=== PATIENT | female | born 1970 | race Caucasian/White ===

== ENCOUNTER 2021-06-29 18:28 | Emergency (ER) | payer OTHER ==
[~2021-06-29] VITALS: Ht 170.2 cm; Wt 104.3 kg
[2021-06-29 18:30] VITALS: BP 165/110
--- NOTE | 2021-06-29 18:40 | NUR ---
51 Y/O F AMBULATED TO BED 3 WITH STEADY GAIT, C/O ABD, DYSURIA WITH ODOR AND INCREASED URGE TO URINATE, AND LOW BACK PAIN. PT TAKING OTC AZO PMH: PRE-DM, HYPOTHYROID, HTN NKDA
[2021-06-29] MEDS ORDERED: SULF-59 PO (19:01)
[2021-06-29] MEDS ORDERED: PYR100 PO (19:01)
[2021-06-29] MEDS ORDERED: ACET-10509 PO (19:01)
[2021-06-29] MEDS ORDERED: HYDROcodone/APAP 5/325 MG 1 TAB TAB PO ONE (19:05)
[2021-06-29 19:20] VITALS: BP 165/110
--- NOTE | 2021-06-29 19:20 | NUR ---
Patient discharged with v/s stable. Written and verbal after care instructions given and explained. Patient alert, oriented and verbalized understanding of instructions. Ambulatory with steady gait. All questions addressed prior to discharge. ID band removed. Patient advised to follow up with PMD. Rx of TYLENOL EXTRA STRENGTH, PYRIDIUM, BACTRIM given. Patient educated on indication of medication including possible reaction and side effects. Opportunity to ask questions provided and answered.
== END 2021-06-29 19:20 | disposition home or self-care (01) ==
LOC: MED 18:28
DX: N39.0 Urinary tract infection, site not specified (principal); I10 Essential (primary) hypertension; E07.9 Disorder of thyroid, unspecified; Z79.899 Other long term (current) drug therapy
CPT/HCPCS: 81002; 81025; 99283

== ENCOUNTER 2021-10-06 19:01 | Emergency (ER) | payer OTHER ==
[~2021-10-06] VITALS: Ht 170.2 cm; Wt 70.3 kg
[~2021-10-06 19:01] MED LIST: ACET-10509 PO; PYR100 PO; SULF-59 PO
[2021-10-06 19:16] VITALS: BP 105/46
--- NOTE | 2021-10-06 19:44 | NUR ---
PT TAKEN TO ER BED 04
--- NOTE | 2021-10-06 19:44 | NUR ---
Marion hodges in [facility] - 10/06/21 at 1944 by COLIN PT AMBULATED TO BED 04.
[2021-10-06 19:59] LABS: HEMATOCRIT 31.1 % (36-48); MEAN CORPUSCULAR HEMOGLOBIN 31 pg (27-31); MEAN CORPUSCULAR HGB CONC 32 g/dL (33-37); MEAN CORPUSCULAR VOLUME 96.6 fL (80-94); PLATELET COUNT (AUTO) 430 K/uL (140-450); RED BLOOD CELL COUNT(AUTO) 3.21 MIL/uL (4.20-5.40); RED CELL DISTRIBUTION WIDTH 13.8 % (11.6-13.7)
--- NOTE | 2021-10-06 20:05 | NUR ---
ER AT BEDSIDE
--- NOTE | 2021-10-06 20:15 | NUR ---
RN LACTATION AT BEDSIDE
[2021-10-06 20:20] LABS: ALBUMIN 2.2 g/dL (3.4-5.0); ANION GAP 14.7 (8-16); CARBON DIOXIDE 21.9 mmol/L (21-32); CREATININE 1.7 mg/dL (0.6-1.3); POTASSIUM 3.6 mmol/L (3.5-5.1); TOTAL BILIRUBIN 0.3 mg/dL (0.0-1.0)
--- NOTE | 2021-10-06 20:34 | NUR ---
51 Y/O FEMALE BIBS FROM HOME, C/O BACK PAIN. PT HAS BEEN HAVING CHRONIC STEROID INJECTIONS IN LOWER BACK/SACRUM FOR PAIN MANAGEMENT. PT NOW HAS MORE SEVERE PAIN THAT RADIATES TO ABDOMEN SINCE September. +RUQ PAIN, + NAUSEA, + POLYUREA. DENIES DIARRHEA, FEVER, OR COUGH. A/OX4, UNLABORED BREATHING, WEAKNESS WITH AMBULATION. HX: DM, HTN, CHRONIC BACK PAIN NKA SX: APPENDECTOMY, CHOLECYSTECTOMY
[2021-10-06 20:38] LABS: WHITE BLOOD COUNT (AUTO) 35.3 K/uL (4.8-10.8)
[2021-10-06 20:53] LABS: LYMPHOCYTES % (MANUAL) 5 % (20-46); PLATELET COUNT,MANUAL 430 K/uL (150-450)
[2021-10-06] MEDS ORDERED: NACL 0.9% 1,000 ML IV ONE (20:55)
[2021-10-06] MEDS ORDERED: VANCOMYCIN 1,000 MG in DEXTROSE 5% 250 ML IV ONE (20:55)
[2021-10-06] MEDS ORDERED: metroNIDAZOLE 500 MG/NS PREMIX 100 ML IV ONE (20:55)
[2021-10-06] MEDS ORDERED: VANCOMYCIN 1,000 MG VIAL ONE (20:56)
--- NOTE | 2021-10-06 21:16 | NUR ---
COVID/DARLENE AND FLU SWABS COLLECTED AND WALKED TO LAB
[2021-10-06 21:21] LABS: APPEARANCE,URINE CLEAR (CLEAR); BILIRUBIN,URINE 1+ (NEGATIVE); BLOOD, URINE 3+ (NEGATIVE); COLOR,URINE YELLOW (YELLOW); LEUKOCYTE ESTERASE ,URINE 2+ (NEGATIVE); NITRITE, URINE NEGATIVE (NEGATIVE); UGLUCOSE NEGATIVE (NEGATIVE)
--- NOTE | 2021-10-06 21:34 | NUR ---
PT TAKEN TO CT.
[2021-10-06 21:37] LABS: RBC,URINE 0-5 /HPF (0-5); WBC,URINE 20-60 /HPF (0-5)
--- NOTE | 2021-10-06 21:46 | NUR ---
PT RETURNED FROM CT.
--- NOTE | 2021-10-06 22:58 | NUR ---
ER AT BEDSIDE
[2021-10-06] MEDS ORDERED: MORPHINE SULFATE 4 MG/ML SYR IVP ONE (23:05)
[2021-10-06] MEDS ORDERED: cefTRIAXone 2,000 MG in DEXTROSE 5% 100 ML IV ONE (23:05)
--- NOTE | 2021-10-06 23:16 | NUR ---
RALEIGH CERDA AT BEDSIDE REEVALUATING PT
[2021-10-07] MEDS ORDERED: cefTRIAXone 2,000 MG VIAL ONE (00:30)
[2021-10-07] MEDS ORDERED: TRAZ-343 PO (00:43)
[2021-10-07] MEDS ORDERED: METF-1139 PO (00:43)
[2021-10-07] MEDS ORDERED: SYN.05 PO (00:43)
[2021-10-07] MEDS ORDERED: ATOR10TA PO (00:43)
[2021-10-07] MEDS ORDERED: ONDA-188 PO (00:43)
[2021-10-07] MEDS ORDERED: AMLO2.5T PO (00:43)
[2021-10-07] MEDS ORDERED: BUS5 PO (00:43)
--- NOTE | 2021-10-07 01:27 | NUR ---
Marion hodges in ED - 10/07/21 at 0129 by [email or web address] HERE TO MANAGER INTERVENTIONAL PT GOING TO [facility].
--- NOTE | 2021-10-07 01:28 | NUR ---
[facility] AT BEDSIDE FOR TX
--- NOTE | 2021-10-07 01:38 | NUR ---
Patient to be transferred to [facility]. Is being transferred due to HIGHER LEVEL OF CARE/MRI/ORTHO-SPINE/NEUROSURG. Receiving facility has accepting physician and available space. ER physician has signed transfer form. Patient or responsible republican has agreed to transfer and signed form. Patient belongings inventoried and will be sent with patient. Copy of nursing notes, lab reports, EKG, Physicians Orders and X-rays to be sent with patient. Report called to ELVI CURTIS at receiving facility. [facility] ambulance service has been called for transfer.
[2021-10-07 01:39] VITALS: BP 122/50
[2021-10-07] MEDS ORDERED: TRAZ150T36 PO (19:15)
[2021-10-07] MEDS ORDERED: SIMV-30 PO (19:15)
[2021-10-07] MEDS ORDERED: ONDA4TAB12 PO (19:15)
[2021-10-07] MEDS ORDERED: LEVO0.0211 PO (19:15)
[2021-10-07] MEDS ORDERED: AMLO-3 PO (19:15)
[2021-10-08] MEDS ORDERED: CEPH-588 PO (14:46)
== END 2021-10-07 01:38 | disposition short-term general hospital (02) ==
LOC: MED 19:01
DX: A41.9 Sepsis, unspecified organism (principal); Z20.822 Contact with and (suspected) exposure to COVID-19; N17.9 Acute kidney failure, unspecified; M54.50 Low back pain, unspecified; N39.0 Urinary tract infection, site not specified; I10 Essential (primary) hypertension; E03.9 Hypothyroidism, unspecified; E11.9 Type 2 diabetes mellitus without complications; Z79.4 Long term (current) use of insulin; Z79.899 Other long term (current) drug therapy; Z90.49 Acquired absence of other specified parts of digestive tract; Z98.890 Other specified postprocedural states
CPT/HCPCS: 36415; 72131; 74176; 80053; 81001; 83605; 83690; 85025; 85651; 86140; 87040; 87086; 87426; 87804; 96361; 96365; 96367; 96375; 99291; J0696; J2270; J3370; J3490; J7030

== ENCOUNTER 2021-10-07 15:20 | Observation (INO) | payer OTHER ==
[~2021-10-07] VITALS: Ht 175.3 cm; Wt 108.9 kg
[~2021-10-07 15:20] MED LIST changes: +AMLO2.5T PO; +ATOR10TA PO; +BUS5 PO; +METF-1139 PO; +ONDA-188 PO; +SYN.05 PO; +TRAZ-343 PO
[2021-10-07 15:39] VITALS: BP 110/50
--- NOTE | 2021-10-07 15:59 | NUR ---
Pt to radiology via wheelchair accompanied by pharmacy technologist.
--- NOTE | 2021-10-07 16:06 | NUR ---
PT BROUGHT BACK FROM CT TO BED 7
--- NOTE | 2021-10-07 16:10 | NUR ---
20G IV PLCED ON LEFT AC USING ASEPTIC TECHNIQUE. NO INFILTRATION NOTED. PT HAS NO C/O.
[2021-10-07] MEDS ORDERED: cefTRIAXone 1,000 MG VIAL ONE (16:23)
--- NOTE | 2021-10-07 16:30 | NUR ---
51YO FEMALE PT C/O SHARP 10/10 LOWER BACK PAIN X2 DAYS. PT WAS SEEN HERE YESTERDAY AND DX WITH LEUKOCYTOSIS , PYLENONEPHRITIS AND ACUTE UTI. PT WAS THEN TX TO [facility] FOR POSSIBLE SPINAL ABSCESS. PT LEFT AMA THIS MORNING AFTER NEGATIVE MRI DUE TO "HAVING NO BED AND BEING UNCOMFORTBLE". PT HAS CHRONIC BACK PAIN DUE TO HERNIATED DISC. PT STATES NAUSEA X3 DAYS, DENIES AT THIS TIME. PT DENIES CHEST PAIN , V/D OR FEVERS. PT AAOX4, IN VISIBLE DISCOMFORT WITH CONSTANT CHANGING POSITIONS, RESPIRATIONS EVEN AND UNLABORED. PT ON MONITOR, BED AT LOWEST POSITION, BED RAIL UP X2. HX: DIABETES, HIGH CHOLESTEROL, ANXIETY NKA
[2021-10-07 16:41] LABS: HEMATOCRIT 30.3 % (36-48); HEMOGLOBIN 9.6 g/dL (12.0-16.0); MEAN CORPUSCULAR HEMOGLOBIN 31 pg (27-31); MEAN CORPUSCULAR HGB CONC 32 g/dL (33-37); MEAN CORPUSCULAR VOLUME 96.6 fL (80-94); PLATELET COUNT (AUTO) 468 K/uL (140-450); RED BLOOD CELL COUNT(AUTO) 3.13 MIL/uL (4.20-5.40); RED CELL DISTRIBUTION WIDTH 13.8 % (11.6-13.7)
[2021-10-07 16:45] LABS: WHITE BLOOD COUNT (AUTO) 29.1 K/uL (4.8-10.8)
--- NOTE | 2021-10-07 16:49 | NUR ---
PT AMBULATORY TO RESTROOM
--- NOTE | 2021-10-07 16:51 | NUR ---
PT AMBULATED BACK TO ROOM, UNABLE TO GIVE URINE "I FORGOT TO PUT THE CUP"
--- NOTE | 2021-10-07 17:03 | NUR ---
RT AT BEDSIDE DOING ABG's
[2021-10-07] MEDS ORDERED: HYDROcodone/APAP 5/325 MG 1 TAB TAB PO ONE (17:05)
[2021-10-07 17:10] LABS: ALBUMIN 2.1 g/dL (3.4-5.0); ANION GAP 14.4 (8-16); CARBON DIOXIDE 21.3 mmol/L (21-32); CREATININE 1.4 mg/dL (0.6-1.3); POTASSIUM 3.7 mmol/L (3.5-5.1); TOTAL BILIRUBIN 0.2 mg/dL (0.0-1.0)
[2021-10-07 17:12] LABS: LYMPHOCYTES % (MANUAL) 7 % (20-46); METAMYELOCYTES % 1 % (0-0); PROMYELOCYTES % 1 % (0-0)
--- NOTE | 2021-10-07 17:13 | NUR ---
RT REPORTS X2 ABG FAILED ATTEMPTS
[2021-10-07] MEDS ORDERED: NACL 0.9% 2,000 ML IV ONE (17:20)
[2021-10-07] MEDS ORDERED: ONDANSETRON 4 MG/2 ML VIAL IVP PRN (17:55)
[2021-10-07] MEDS ORDERED: ACETAMINOPHEN 325 MG TAB PO PRN (17:55)
--- NOTE | 2021-10-07 17:56 | NUR ---
PT SWABBED FOR COVID(DARLENE). HANDED TO COAL OR ORE CONTROLLER
--- NOTE | 2021-10-07 18:45 | NUR ---
PT PROVIDED WITH DINNER, LEFT AT BEDSIDE
--- NOTE | 2021-10-07 18:52 | NUR ---
PT AMBULATED TO RESTROOM
[2021-10-07] MEDS ORDERED: AMLO-3 PO (19:15)
[2021-10-07] MEDS ORDERED: LEVO0.0211 PO (19:15)
[2021-10-07] MEDS ORDERED: SIMV-30 PO (19:15)
[2021-10-07] MEDS ORDERED: TRAZ150T36 PO (19:15)
[2021-10-07] MEDS ORDERED: ONDA4TAB12 PO (19:15)
--- NOTE | 2021-10-07 19:24 | NUR ---
REPORT GIVEN TO MIRIAM CHAVARRIA. ALL QUESTIONS ANSWERED. TRANSFER OF CARE AT THIS TIME
--- NOTE | 2021-10-07 20:44 | NUR ---
Patient will be admitted to care of [facility]. Admited to TELE. Will go to room. Belongings list completed. Report to .
--- NOTE | 2021-10-07 20:50 | NUR ---
RECEIVED PT FROM ER VIA GURNEY, AWAKE, ALERT AND VERBALLY RESPONSIVE. PT TRANSFERRED INDEPENDENTLY TO BED WITH NO ASSISTANCE. ADMITTING DIAGNOSIS IS UTI AND BACK PAIN WITH HISTORY OF DM. PT IS AWAKE, ALERT AND ORIENTED X 4, ABLE TO VERBALIZED NEEDS. ON SKIN ASSESSMENT, PT HAS NO SKIN PROBLEM. SKIN INTACT, DRY AND WARM. BILATERAL LUNGS CLEAR, NO SOB OR DISTRESS. IV SALINE LOCK PRESENT ON LEFT AC 20 G, INTACT AND PATENT. IV FLUID NORMAL SALINE ADMINISTERED PER ORDERED. PT COMPLAINTS OF LOW BACK PAIN. PT POSITION HERSELF ON BED. ORIENT PT TO THE ROOM.
[2021-10-07 21:10] LABS: BILIRUBIN,URINE NEGATIVE (NEGATIVE); BLOOD, URINE 2+ (NEGATIVE); LEUKOCYTE ESTERASE ,URINE 1+ (NEGATIVE); NITRITE, URINE NEGATIVE (NEGATIVE); UGLUCOSE NEGATIVE (NEGATIVE)
--- NOTE | 2021-10-07 21:23 | NUR ---
The patient's care was reviewed and supervised by Sindy Ferguson RN.
[2021-10-07 22:01] LABS: APPEARANCE,URINE HAZY (CLEAR); COLOR,URINE STRAW (YELLOW)
[2021-10-07 22:02] LABS: RBC,URINE 0-5 /HPF (0-5); WBC,URINE 60-80 /HPF (0-5)
--- NOTE | 2021-10-07 23:30 | NUR ---
PT COMPLAINTS OF INCREASE PAIN OF LOWER BACK AND ABDOMEN 09/16. PAIN MEDICATION ADMINISTERED ORDER.
[2021-10-07] MEDS: MORPHINE SULFATE 2 MG/ML SYR IVP PRN (23:33)
--- NOTE | 2021-10-08 01:00 | NUR ---
PT ASLEEP, NO FACIAL GRIMACING.
[2021-10-08 04:00] VITALS: BP 106/57
[2021-10-08] MEDS: NACL 0.9% 1,000 ML IV SCH ×2 (04:02→13:16)
[2021-10-08 05:47] LABS: BASOPHILS % (AUTO) 0.2 % (0.0-2.0); EOSINOPHILS # (AUTO) 0.1 K/uL (0-0.4); EOSINOPHILS % (AUTO) 0.4 % (0.0-4.0); HEMATOCRIT 26.9 % (36-48); HEMOGLOBIN 8.9 g/dL (12.0-16.0); LYMPHOCYTES # (AUTO) 0.9 K/uL (2.5-16.5); MEAN CORPUSCULAR HEMOGLOBIN 32 pg (27-31); MEAN CORPUSCULAR HGB CONC 33 g/dL (33-37); MEAN CORPUSCULAR VOLUME 95.8 fL (80-94); MONOCYTES % (AUTO) 4.4 % (1.7-9.3); NEUTROPHILS # (AUTO) 20.7 K/uL (1.8-7.7); PLATELET COUNT (AUTO) 444 K/uL (140-450); RED BLOOD CELL COUNT(AUTO) 2.81 MIL/uL (4.20-5.40); RED CELL DISTRIBUTION WIDTH 13.3 % (11.6-13.7); WHITE BLOOD COUNT (AUTO) 22.8 K/uL (4.8-10.8)
[2021-10-08 06:59] LABS: ANION GAP 12.3 (8-16); CARBON DIOXIDE 20.3 mmol/L (21-32); CREATININE 1.1 mg/dL (0.6-1.3); MAGNESIUM 1.9 mg/dL (1.8-2.4); PHOSPHORUS 3.5 mg/dL (2.5-4.9); POTASSIUM 3.6 mmol/L (3.5-5.1); TOTAL BILIRUBIN 0.2 mg/dL (0.0-1.0)
--- NOTE | 2021-10-08 07:15 | NUR ---
RECEIVED REPORT FROM SKI PATROL NURSE FOR CONTINUITY OF CARE. PT AWAKE IN BED, A/OX4. BREATHING SYMMETRICAL ON ROOM AIR. LAC 20G WITH NS AT 125CC/HR. C/O LOWER BACK PAIN, PT HAS HX OF CHRONIC BACK PAIN. CALL LIGHT WITHIN REACH. ALL SAFETY MEASURES IN PLACE.
--- NOTE | 2021-10-08 07:15 | NUR ---
PT IS ON STABLE CONDITION, IVF NORMAL SALINE IS INFUSING WELL. ENDORSED TO DAY SHIFT NURSE FOR CONTINUITY OF PT CARE.
[2021-10-08] MEDS: MORPHINE SULFATE 2 MG/ML SYR IVP PRN (07:31)
[2021-10-08 08:00] VITALS: BP 100/57
--- NOTE | 2021-10-08 10:35 | NUR ---
PT AWAKE IN BED. BREATHING SYMMETRICAL ON ROOM AIR. CALL LIGHT WITHIN REACH
--- NOTE | 2021-10-08 11:55 | NUR ---
NOTED PT'S IV LINE ON LAC LEAKING. INSERTED NEW LINE ON LEFT HAND 22G, NO S/SX OF INFILTRATION NOTED
[2021-10-08 12:00] VITALS: BP 112/65
[2021-10-08] MEDS ORDERED: CEPH-588 PO (14:46)
[2021-10-08 14:58] VITALS: BP 112/65
--- NOTE | 2021-10-08 15:00 | NUR ---
PT PULLED OUT HER IV LINE, GAUZE APPLIED DUE TO MINIMAL BLEEDING ON SITE. DENIES PAIN.
--- NOTE | 2021-10-08 15:03 | NUR ---
PT FOR DISCHARGE, PT AWARE.
--- NOTE | 2021-10-08 15:28 | NUR ---
PT DISCHARGED TO HOME WITH BELONGINGS AND PAPERWORKS, DISCHARGE INSTRUCTIONS PROVIDED AND VERBALIZED UNDERSTANDING, PICKED UP BY MOTHER VIA PRIVATE VEHICLE. IN STABLE CONDITION.
== END 2021-10-08 15:30 | disposition home or self-care (01) ==
LOC: MED 15:20 → MTU 18:01
PROVIDERS: ADMIT Hospitalist; ATTEND Hospitalist
DX: N39.0 Urinary tract infection, site not specified (principal); Z20.822 Contact with and (suspected) exposure to COVID-19; M54.50 Low back pain, unspecified; N12 Tubulo-interstitial nephritis, not specified as acute or chronic; E11.9 Type 2 diabetes mellitus without complications; I10 Essential (primary) hypertension; Z79.899 Other long term (current) drug therapy
CPT/HCPCS: 36415; 71045; 80053; 81001; 82553; 82948; 83036; 83605; 83735; 83874; 83880; 84100; 85025; 85610; 85730; 87040; 87081; 87086; 87426; 93005; 96361; 96365; 96375; 96376; 99291; 99292; G0378; J0696; J2270; J7030; J7060

== ENCOUNTER 2021-10-30 15:01 | Emergency (ER) | payer OTHER ==
[~2021-10-30] VITALS: Ht 165.1 cm; Wt 114.5 kg
[~2021-10-30 15:01] MED LIST changes: -ACET-10509 PO; +AMLO-3 PO; -AMLO2.5T PO; -ATOR10TA PO; -BUS5 PO; +CEPH-588 PO; +LEVO0.0211 PO; -METF-1139 PO; -ONDA-188 PO; +ONDA4TAB12 PO; -PYR100 PO; +SIMV-30 PO; -SULF-59 PO; -SYN.05 PO; -TRAZ-343 PO; +TRAZ150T36 PO
[2021-10-30 15:09] VITALS: BP 126/99
[2021-10-30] MEDS ORDERED: KETOROLAC 60 MG/2 ML VIAL IM ONE (15:55)
--- NOTE | 2021-10-30 16:16 | NUR ---
PT TAKEN TO US.
[2021-10-30 16:48] LABS: BASOPHILS # (AUTO) 0.1 K/uL (0.00-0.22); BASOPHILS % (AUTO) 1.1 % (0.0-2.0); EOSINOPHILS # (AUTO) 0.3 K/uL (0-0.4); EOSINOPHILS % (AUTO) 3.9 % (0.0-4.0); HEMOGLOBIN 11.4 g/dL (12.0-16.0); LYMPHOCYTES % (AUTO) 27.5 % (20.5-51.1); MEAN CORPUSCULAR HEMOGLOBIN 31 pg (27-31); MEAN CORPUSCULAR HGB CONC 33 g/dL (33-37); MEAN CORPUSCULAR VOLUME 96.6 fL (80-94); MONOCYTES # (AUTO) 0.5 K/uL (0.8-1.0); MONOCYTES % (AUTO) 6.5 % (1.7-9.3); NEUTROPHILS # (AUTO) 4.6 K/uL (1.8-7.7); PLATELET COUNT (AUTO) 350 K/uL (140-450); RED BLOOD CELL COUNT(AUTO) 3.63 MIL/uL (4.20-5.40); RED CELL DISTRIBUTION WIDTH 15.5 % (11.6-13.7); WHITE BLOOD COUNT (AUTO) 7.5 K/uL (4.8-10.8)
--- NOTE | 2021-10-30 16:50 | NUR ---
PT BACK FROM US VIA W/C
--- NOTE | 2021-10-30 16:57 | NUR ---
Urine sample obtained, handed to CLS at bedside.
[2021-10-30 17:20] LABS: ALBUMIN 4.3 g/dL (3.4-5.0); ANION GAP 13.9 (8-16); CARBON DIOXIDE 27.4 mmol/L (21-32); POTASSIUM 3.3 mmol/L (3.5-5.1); TOTAL BILIRUBIN 0.3 mg/dL (0.0-1.0)
--- NOTE | 2021-10-30 17:36 | NUR ---
Chaperoned Dr. Ashley for pelvic exam.
[2021-10-30 17:48] LABS: APPEARANCE,URINE CLEAR (CLEAR); BILIRUBIN,URINE NEGATIVE (NEGATIVE); BLOOD, URINE NEGATIVE (NEGATIVE); LEUKOCYTE ESTERASE ,URINE NEGATIVE (NEGATIVE); NITRITE, URINE POSITIVE (NEGATIVE); UGLUCOSE NEGATIVE (NEGATIVE)
[2021-10-30] MEDS ORDERED: DOXYCYCLINE 100 MG CAP PO SCH (17:50)
[2021-10-30] MEDS ORDERED: HYDROcodone/APAP 5/325 MG 1 TAB TAB PO ONE (17:50)
[2021-10-30] MEDS ORDERED: metroNIDAZOLE 250 MG TAB PO ONE (17:50)
[2021-10-30] MEDS ORDERED: cefTRIAXone 1,000 MG VIAL ONE (17:57)
[2021-10-30 17:58] LABS: COLOR,URINE AMBER (YELLOW)
[2021-10-30] MEDS ORDERED: metroNIDAZOLE 500 MG TAB ONE ×2 (18:00→18:01)
[2021-10-30] MEDS ORDERED: IBUP-2213 PO (18:52)
[2021-10-30] MEDS ORDERED: DOXY-487 PO (18:52)
--- NOTE | 2021-10-30 19:02 | NUR ---
Patient discharged with v/s stable. Written and verbal after care instructions given. Patient alert, oriented and verbalized understanding of instructions. Ambulatory with steady gait. All questions addressed prior to discharge. ID band removed. Patient advised to follow up with PMD. Rx of Doxycycline Hyclate and Ibuprofen given. Opportunity to ask questions provided and answered.
== END 2021-10-30 19:02 | disposition home or self-care (01) ==
LOC: MED 15:01
DX: N73.9 Female pelvic inflammatory disease, unspecified (principal); I10 Essential (primary) hypertension; E11.9 Type 2 diabetes mellitus without complications; E03.9 Hypothyroidism, unspecified; J45.909 Unspecified asthma, uncomplicated; Z79.4 Long term (current) use of insulin; Z79.899 Other long term (current) drug therapy
CPT/HCPCS: 36415; 76856; 80053; 81003; 81025; 83690; 85025; 87070; 87205; 87210; 87491; 96365; 96372; 99285; J0696; J1885; Q0092

== ENCOUNTER 2022-07-29 19:06 | Emergency (ER) | payer OTHER ==
[~2022-07-29] VITALS: Ht 170.2 cm; Wt 108.9 kg
[~2022-07-29 19:06] MED LIST changes: +DOXY-487 PO; +IBUP-2213 PO
[2022-07-29 19:25] VITALS: BP 147/93
[2022-07-29 20:34] LABS: BASOPHILS # (AUTO) 0.2 K/uL (0.00-0.22); BASOPHILS % (AUTO) 1.4 % (0.0-2.0); EOSINOPHILS # (AUTO) 0.5 K/uL (0-0.4); EOSINOPHILS % (AUTO) 4.7 % (0.0-4.0); HEMATOCRIT 29.7 % (36-48); HEMOGLOBIN 9.4 g/dL (12.0-16.0); LYMPHOCYTES % (AUTO) 17.9 % (20.5-51.1); MEAN CORPUSCULAR HEMOGLOBIN 26 pg (27-31); MEAN CORPUSCULAR HGB CONC 32 g/dL (33-37); MEAN CORPUSCULAR VOLUME 82.4 fL (80-94); MONOCYTES # (AUTO) 0.5 K/uL (0.8-1.0); MONOCYTES % (AUTO) 4.1 % (1.7-9.3); NEUTROPHILS % (AUTO) 71.9 % (42.2-75.2); PLATELET COUNT (AUTO) 458 K/uL (140-450); RED BLOOD CELL COUNT(AUTO) 3.61 MIL/uL (4.20-5.40); RED CELL DISTRIBUTION WIDTH 16.5 % (11.6-13.7); WHITE BLOOD COUNT (AUTO) 11.1 K/uL (4.8-10.8)
[2022-07-29 20:58] LABS: ALBUMIN 4.4 g/dL (3.4-5.0); ANION GAP 13.6 (8-16); CARBON DIOXIDE 28.2 mmol/L (21-32); CREATININE 1.1 mg/dL (0.6-1.3); POTASSIUM 3.8 mmol/L (3.5-5.1); TOTAL BILIRUBIN 0.4 mg/dL (0.0-1.0)
--- NOTE | 2022-07-29 21:00 | NUR ---
Patient discharged by ER MD Morales.
[2022-07-29] MEDS ORDERED: CLIN300C2 PO (21:10)
== END 2022-07-29 21:00 | disposition home or self-care (01) ==
LOC: MED 19:06
DX: J34.89 Other specified disorders of nose and nasal sinuses (principal); I10 Essential (primary) hypertension; E11.9 Type 2 diabetes mellitus without complications; E03.9 Hypothyroidism, unspecified; J45.909 Unspecified asthma, uncomplicated; Z79.899 Other long term (current) drug therapy
CPT/HCPCS: 36415; 80053; 83605; 85025; 99283

== ENCOUNTER 2023-01-03 20:01 | Emergency (ER) | payer OTHER ==
[~2023-01-03 20:01] MED LIST changes: +CLIN300C2 PO
== END 2023-01-03 21:35 | disposition left against medical advice (07) ==
LOC: MED 20:01
DX: R06.02 Shortness of breath (principal); Z53.21 Procedure and treatment not carried out due to patient leaving prior to being seen by health care provider

== ENCOUNTER 2023-07-03 16:51 | Emergency (ER) | payer OTHER ==
[~2023-07-03] VITALS: Ht 167.6 cm; Wt 99.8 kg
[2023-07-03 17:11] VITALS: BP 150/91; PULSE 78; RESP 18; TEMP 97.5; O2SAT 98
[2023-07-03 19:06] VITALS: BP 152/94; PULSE 74; RESP 18; TEMP 98; O2SAT 98
== END 2023-07-03 19:33 | disposition left against medical advice (07) ==
LOC: MED 16:51
DX: R06.02 Shortness of breath (principal); R68.83 Chills (without fever); M79.10 Myalgia, unspecified site; Z53.21 Procedure and treatment not carried out due to patient leaving prior to being seen by health care provider
CPT/HCPCS: 99281

== ENCOUNTER 2024-01-24 12:30 | Emergency (ER) | payer OTHER ==
[~2024-01-24] VITALS: Ht 180.3 cm; Wt 100.8 kg
[2024-01-24 12:33] VITALS: BP 136/86; PULSE 66; RESP 17; TEMP 98.3; O2SAT 99
[2024-01-24] MEDS: NACL 0.9% 1,000 ML IV ONE (12:45)
[2024-01-24 13:17] LABS: APPEARANCE,URINE CLEAR (CLEAR); BILIRUBIN,URINE NEGATIVE (NEGATIVE); BLOOD, URINE NEGATIVE (NEGATIVE); COLOR,URINE YELLOW (YELLOW); LEUKOCYTE ESTERASE ,URINE TRACE (NEGATIVE); NITRITE, URINE NEGATIVE (NEGATIVE); PROTEIN,URINE NEGATIVE (NEGATIVE); UGLUCOSE NEGATIVE (NEGATIVE); UROBILINOGEN,URINE 0.2 EU/dL (0.2 - 1)
[2024-01-24 13:18] LABS: BASOPHILS # (AUTO) 0.1 K/uL (0.00-0.22); BASOPHILS % (AUTO) 0.9 % (0.0-2.0); EOSINOPHILS # (AUTO) 0.2 K/uL (0-0.4); EOSINOPHILS % (AUTO) 1.9 % (0.0-4.0); HEMOGLOBIN 11.2 g/dL (12.0-16.0); LYMPHOCYTES # (AUTO) 1.5 K/uL (2.5-16.5); LYMPHOCYTES % (AUTO) 18.8 % (20.5-51.1); MEAN CORPUSCULAR HEMOGLOBIN 29 pg (27-31); MEAN CORPUSCULAR HGB CONC 33 g/dL (33-37); MEAN CORPUSCULAR VOLUME 88.7 fL (80-94); MONOCYTES # (AUTO) 0.5 K/uL (0.8-1.0); MONOCYTES % (AUTO) 5.5 % (1.7-9.3); NEUTROPHILS % (AUTO) 72.9 % (42.2-75.2); PLATELET COUNT (AUTO) 389 K/uL (140-450); RED BLOOD CELL COUNT(AUTO) 3.84 MIL/uL (4.20-5.40); RED CELL DISTRIBUTION WIDTH 17.8 % (11.6-13.7); WHITE BLOOD COUNT (AUTO) 8.2 K/uL (4.8-10.8)
[2024-01-24 13:28] LABS: ANION GAP 7.7 (8-16); CALCIUM 8.4 mg/dL (8.5-10.1); CARBON DIOXIDE 28.7 mmol/L (21-32); CREATININE 1.1 mg/dL (0.6-1.3); POTASSIUM 3.4 mmol/L (3.5-5.1)
[2024-01-24 13:46] LABS: BACTERIA,URINE None Seen /HPF (None Seen); RBC,URINE 0-5 /HPF (0-5); SQUAMOUS EPITHELIAL CELL,UR 4-10 (MOD) /LPF (0-3 (FEW)); WBC,URINE 0-5 /HPF (0-5)
[2024-01-24] MEDS ORDERED: ATA25 PO (13:58)
[2024-01-24] MEDS ORDERED: IBUP-2213 PO (13:58)
[2024-01-24 14:01] LABS: CKMB RELATIVE INDEX 1.6 (0.0-2.5)
[2024-01-24 14:44] VITALS: BP 130/86; PULSE 63; RESP 10; TEMP 98.3; O2SAT 94
== END 2024-01-24 14:44 | disposition home or self-care (01) ==
LOC: MED 12:30
DX: R53.83 Other fatigue (principal); R11.0 Nausea; R68.83 Chills (without fever); J45.909 Unspecified asthma, uncomplicated; E11.9 Type 2 diabetes mellitus without complications; I10 Essential (primary) hypertension; Z90.49 Acquired absence of other specified parts of digestive tract; Z98.84 Bariatric surgery status; Z98.890 Other specified postprocedural states; Z79.899 Other long term (current) drug therapy
CPT/HCPCS: 36415; 71045; 80048; 81001; 82550; 82553; 82948; 85025; 96360; 99284; J7030